=== PATIENT | female | born 1950 | race Two or more races ===

== ENCOUNTER 2018-07-18 11:40 | Outpatient (CLI) | payer OTHER ==
[~2018-07-18] VITALS: Ht 157.5 cm; Wt 77.1 kg
== END 2018-07-18 12:00 | disposition home or self-care (01) ==
LOC: OFIC 805 11:40
DX: R49.0 Dysphonia (principal); K21.0 Gastro-esophageal reflux disease with esophagitis; J30.89 Other allergic rhinitis; R09.82 Postnasal drip

== ENCOUNTER 2018-10-08 06:30 | Day surgery (SDC) | payer OTHER ==
[~2018-10-08 06:30] MED LIST: HUMALOG100 UNIT/1; LANTUS SOL100 UNIT/1 SUBCUTANEO; SIMVASTATIN10 MG PO
== END 2018-10-08 13:15 | disposition home or self-care (01) ==
LOC: CIR.AMB
DX: M23.352 Other meniscus derangements, posterior horn of lateral meniscus, left knee (principal); M23.322 Other meniscus derangements, posterior horn of medial meniscus, left knee; M94.262 Chondromalacia, left knee; M65.862 Other synovitis and tenosynovitis, left lower leg

== ENCOUNTER 2020-01-09 10:47 | Outpatient (CLI) | payer OTHER | END 2020-01-09 10:52 | disposition home or self-care (01) | LOC: EKG 10:47 | PROVIDERS: ATTEND Obstetrics & Gynecology | DX: Z01.810 Encounter for preprocedural cardiovascular examination (principal) ==

== ENCOUNTER 2020-10-15 07:25 | Outpatient (CLI) | payer OTHER | END 2020-10-15 07:54 | disposition home or self-care (01) | LOC: NUCLEAR 07:25 | PROVIDERS: ATTEND Internal Medicine Cardiovascular Disease | DX: R07.89 Other chest pain (principal) | CPT/HCPCS: 78452; 93017; A9500; J0153 ==

== ENCOUNTER 2020-12-06 08:30 | Inpatient (IN) | payer OTHER ==
[~2020-12-06] VITALS: Ht 157.5 cm; Wt 73.9 kg
[2020-12-07] MEDS ORDERED: PROLENSA3 ML OP (09:16)
[2020-12-07] MEDS ORDERED: IRBESARTAN75 MG PO (09:16)
== END 2020-12-09 16:39 | disposition home or self-care (01) | DRG 741 ==
LOC: SURG-SUITE 12-08 06:15 → O/R 12-08 06:15 → SURG-SUITE 12-08 11:44 → SURH 12-10 08:45
PROVIDERS: ADMIT Specialist; ATTEND Specialist
PROC: 0UT24ZZ Resection of Bilateral Ovaries, Percutaneous Endoscopic Approach (ICD-10-PCS; 2020-12-08)
PROC: 07BC4ZX Excision of Pelvis Lymphatic, Percutaneous Endoscopic Approach, Diagnostic (ICD-10-PCS; 2020-12-08)
PROC: 0UB74ZZ Excision of Bilateral Fallopian Tubes, Percutaneous Endoscopic Approach (ICD-10-PCS; 2020-12-08)
PROC: 0UT9FZZ Resection of Uterus, Via Natural or Artificial Opening With Percutaneous Endoscopic Assistance (ICD-10-PCS; principal; 2020-12-08 20:45)
DX: C54.1 Malignant neoplasm of endometrium (principal)

== ENCOUNTER 2021-04-08 10:15 | Outpatient (CLI) | payer OTHER ==
[~2021-04-08 10:15] MED LIST changes: +IRBESARTAN75 MG PO; +PROLENSA3 ML OP
== END 2021-04-08 10:30 | disposition home or self-care (01) ==
LOC: PPH VACUNA 10:15
PROVIDERS: ATTEND Emergency Medicine Pediatric Emergency Medicine
DX: Z23 Encounter for immunization (principal)

== ENCOUNTER 2021-06-09 09:07 | Outpatient (CLI) | payer OTHER | END 2021-06-09 09:19 | disposition home or self-care (01) | LOC: TOM 09:07 | PROVIDERS: ATTEND General Practice | DX: N20.0 Calculus of kidney (principal); K57.92 Diverticulitis of intestine, part unspecified, without perforation or abscess without bleeding ==

== ENCOUNTER 2021-06-17 16:13 | Emergency (ER) | payer OTHER ==
[~2021-06-17] VITALS: Ht 157.5 cm; Wt 73.9 kg
[2021-06-17] MEDS ORDERED: BETIMOL5 M1 (16:30)
[2021-06-18] MEDS ORDERED: PEPCID AC20 MG PO (05:45)
[2021-06-18] MEDS ORDERED: INTESTINEX680 M1 PO (05:45)
[2021-06-18] MEDS ORDERED: METRONIDAZOLE500 MG PO (05:45)
[2021-06-18] MEDS ORDERED: CIPRO500 MG PO (05:45)
[2021-06-18] MEDS ORDERED: LEVSIN0.125 MG PO (05:45)
== END 2021-06-18 05:51 | disposition home or self-care (01) ==
LOC: ER 16:13
DX: A08.2 Adenoviral enteritis (principal); K52.89 Other specified noninfective gastroenteritis and colitis; E86.0 Dehydration; E87.8 Other disorders of electrolyte and fluid balance, not elsewhere classified

== ENCOUNTER 2021-10-11 10:10 | Outpatient (CLI) | payer OTHER ==
[~2021-10-11 10:10] MED LIST changes: +BETIMOL5 M1; +CIPRO500 MG PO; +INTESTINEX680 M1 PO; +LEVSIN0.125 MG PO; +METRONIDAZOLE500 MG PO; +PEPCID AC20 MG PO
== END 2021-10-11 10:25 | disposition home or self-care (01) ==
LOC: PPH VACUNA 10:10
PROVIDERS: ATTEND Emergency Medicine Pediatric Emergency Medicine
DX: Z23 Encounter for immunization (principal)

== ENCOUNTER 2022-03-29 09:13 | Outpatient (CLI) | payer OTHER | END 2022-03-29 14:14 | disposition home or self-care (01) | LOC: TOM 09:13 | PROVIDERS: ATTEND Emergency Medicine Pediatric Emergency Medicine | DX: C54.1 Malignant neoplasm of endometrium (principal); R10.84 Generalized abdominal pain; J20.8 Acute bronchitis due to other specified organisms | CPT/HCPCS: 71046; 74177; Q9965 ==

== ENCOUNTER 2025-05-15 07:16 | Outpatient (CLI) | payer OTHER | END 2025-05-15 07:17 | disposition home or self-care (01) | LOC: NUCLEAR 07:16 | PROVIDERS: ATTEND Internal Medicine | DX: I20.9 Angina pectoris, unspecified (principal) | CPT/HCPCS: 78452; 93017; A9500; J0153 ==